=== PATIENT | male | born 1940 | race Caucasian/White ===

== ENCOUNTER 2023-07-18 19:27 | Emergency (ER) | payer OTHER, SELFPAY ==
[2023-07-18 19:40] LABS: Hematocrit 45.1 % (39.0-52.0); Hemoglobin 15.6 g/dL (13.0-18.0); Mean Corp Hgb Conc. 34.6 g/dL (33.0-37.0); Mean Corpuscular Hgb 31.8 pg (27.0-31.0); Mean Platelet Volume 8.4 fL (7.4-10.4); Platelet Count 249 10^3/uL (130-400); Red Cell Dist. Width 13.3 % (11.5-14.5); White Blood Cell Count 11.7 10^3/uL (4.8-10.8)
[2023-07-18 19:42] VITALS: BP 142/74
[2023-07-18 19:56] LABS: ALT (SGPT) 35 U/L (0-50); AST (SGOT) 40 U/L (17-59); Albumin 4.3 g/dl (3.5-5.0); Alkaline Phosphatase 89 U/L (38-126); Blood Urea Nitrogen 30 mg/dl (9-20); Calcium 9.5 mg/dl (8.4-10.2); Carbon Dioxide 26 mmol/L (22-30); Chloride 105 mmol/L (98-107); Glucose 169 mg/dl (70-99); Lipase 58 U/L (23-300); Potassium 4.7 mmol/L (3.5-5.1); Sodium 138 mmol/L (135-145); Total Bilirubin 0.8 mg/dl (0.2-1.3); Total Protein 7.1 g/dl (6.3-8.2); eGFR > 60.00
[2023-07-18] MEDS: ZOFRAN 4 MG IV (19:59)
[2023-07-18] MEDS: NSS 1000 IV (19:59)
--- NOTE | 2023-07-18 20:04 | ED.GENMED ---
History of Present Illness
General
Chief Complaint: Abdominal Symptoms
Source: patient and other (Nursing staff)
Exam Limitations: dementia
Time Seen by Provider: 07/18/23 19:34
Travel History
Have you had any contact with someone who has COVID-19?: Unable to Answer
Do you have any symptoms of coronavirus? Fever > 100 degrees, chills, cough, shortness of breath, sore throat, loss of taste or smell, muscle aches, or headache?: Unable to Answer
History of Present Illness
History of Present Illness:
This is a 83 year old male that is brought in by ambulance. Told that the patient fell about 12:15 today. Patient states that he just felt weak. Told that his wanted patient sent in as patient has vomited twice and had diarrhea once. Patient
denies any fever, chills, chest pain, SOB, abd pain, nausea, headache, dizziness, urinary burning.
Past History
Past History
ED Past Medical History: CAD, Cancer (Melanoma), CVA, HTN, Hypercholesterolemia and Other (Alzheimer's)
ED Past Surgical History: Appendectomy, Cardiac (CABG), Orthopedic and Other (Muscle skin flap to Skull,. cataracts)
Social History
Tobacco: Former smoker
Alcohol: Occasional
Drug: None
Personal:
Living: retirement ([facility])
Family History
Family History: CAD
Review of Systems
Review of Systems
Other source history: other (Nursing and patient)
All Other Systems: ROS reviewed and negative except as documented in HPI and ROS
Constitutional: Reports no symptoms; Denies fever or chills
EENT: Reports no symptoms
Respiratory: Reports no symptoms; Denies cough or trouble breathing
Cardiac: Reports no symptoms; Denies chest pain
ABD/GI: Reports nausea, vomiting (x2) and diarrhea (X1); Denies abdominal pain
: Reports no symptoms; Denies dysuria, frequency or urgency
Musculoskeletal: Reports no symptoms
Skin: Reports no symptoms
Neurological: Reports no symptoms; Denies dizzy or headache
Psychiatric: Reports no symptoms
Phy Exam
General Physical Exam
General Presentation: no apparent distress (Patient is able to answer some questions)
General age: appears stated age
General Skin: warm and dry
General Habitus: elderly
General Mental: usual mental status
General Hydration: dry mucous membranes
ENT Exam
ENT Exam: TM's normal, pharynx normal and neck supple
Eye Exam
Eye Exam: EOMI
Cardiovascular Exam
Cardiovascular Exam: regular rate/rhythm, no edema and normal peripheral pulses
Pulmonary Exam
Pulmonary Exam: lungs clear, no respiratory distress, no rales, chest non tender, no crackles, no rhonchi, no wheezing and no cough
Gastrointestinal Exam
Gastrointestinal Exam: normal bowel sounds, non tender, soft, no organomegaly, no pulsatile mass and non distended
Musculoskeletal Exam
Musculoskeletal Exam: full ROM and no edema
Skin Exam
Skin Exam: normal color, warm/dry, no rash and no petechia
Psychiatric Exam
Psychiatric Exam: normal mood/affect
Course
Orders/Labs/Results
Orders:
Orders
07/18/23 19:32
Complete Blood Count/No Diff Urgent
Comprehensive Metabolic Panel Urgent
Lipase Urgent
07/18/23 19:42
CT Head W/o Iv Contrast Urgent
Comment:
Reason For Exam: Fall
07/18/23 19:43
0.9% Sodium Chloride 1000 ml [Nss] 1,000 ml IV BOLUS
Ondansetron Injectable [Zofran] 4 mg IV NOW STA
07/18/23 19:58
COVID-19 Antigen Urgent
Source: Nasal Swab
Abnormal Lab Results
07/18/23
19:32
WBC 11.7 H 10^3/uL
(4.8-10.8)
MCH 31.8 H pg
(27.0-31.0)
BUN 30 H mg/dl
(9-20)
Glucose 169 H mg/dl
(70-99)
07/18/23 19:32
07/18/23 19:32
WBC very slightly elevated. Dehdyration. Glucose nonfasting. Lipase normal at 58, COVID negative.
Vital Signs
Initial and Last Documented VS:
Initial Vital Signs
Temp Pulse Resp BP Pulse Ox
97.4 F 92 18 142/74 98
07/18/23 19:42 07/18/23 19:42 07/18/23 19:42 07/18/23 19:42 07/18/23 19:42
Last Documented Vital Signs
Temp Pulse Resp BP Pulse Ox
97.4 F 92 18 142/74 98
07/18/23 19:42 07/18/23 19:42 07/18/23 19:42 07/18/23 19:42 07/18/23 19:42
MDM/Problems Addressed
Differential Diagnosis Includes:
Viral Gi syndrome.
MDM/Problems Addressed:
This is a 83 year old male that is brought in by ambulance with c/o vomiting and diarrhea. Patient also fell today as he stated that he was weak.
Will check labs and CT head.
Back into see patient. Patient has been able to take oral fluid here and has no complaints. Will give patient a prescription for Zofran and have him follow up with the family doctor. Patient to return with any concerns.
Chronic conditions affecting care:
NA
Acute Exacerbation and/or Progression of Chronic Illness:
NA
*Radiology
Radiology exam reviewed: radiology read reviewed (CT head-Stable CT appearance of the head. No evidence of acute intracranial abnormality. )
*Pulse Oximetry
Patient hypoxic: no
*EKG
Interpreted by ED Provider?: NA
Rate: EKG- N/A
*Manager Equity Interpretation
Rate: Manager Equity- N/A
*Critical Care Note
Total Time (30-74mins, 75-104mins- exclusive of procedures): Not Applicable
ED Attending Note
-
Portions of this chart may have been created with voice recognition software.� Occasional wrong word or��sound alike� substitutions may have occurred due to the inherent limitations of voice recognition software.
Discharge Plan
Departure
Patient Disposition: Shelter/SNF
Date of Disposition: 07/18/23
Time of Disposition: 21:47
Patient with high blood pressure during this ER visit?: Yes
Condition: Good
Covid-19: Negative COVID-19
Discharge Problem:
Nausea & vomiting, Diarrhea
Instructions: Diarrhea in adolescents and adults, Nausea and Vomiting, Adult (DC), BLOOD PRESSURE
Prescriptions:
New
ondansetron 4 mg tablet,disintegrating
4 mg PO Q8H PRN (Reason: nausea and vomiting) Qty: 7 0RF
No Action
atorvastatin 80 MG tablet
80 mg PO HS
atenolol 25 MG tablet
25 mg PO DAILY
finasteride 5 MG tablet
5 mg PO DAILY
ezetimibe 10 MG tablet
10 mg PO DAILY
aspirin 81 MG tablet,delayed release (DR/EC)
81 mg PO DAILY
memantine 10 mg Tablet
10 mg PO DAILY
cyanocobalamin (vitamin B-12) 1,000 mcg Tablet Extended Release
1,000 mcg PO MOWEFR
acetaminophen [Tylenol] 325 mg Tablet
650 mg PO Q4H PRN (Reason: fever>100F/mild pain)
triamcinolone acetonide 0.1 % Cream
1 applic TOPICAL BID
Rx Instructions:
apply to forehead rash
alprazolam 0.25 mg Tablet
0.25 mg PO BID
alprazolam 0.25 mg Tablet
0.25 mg PO Q6HPRN PRN (Reason: anxiety)
Multivitamin 50 Plus Tablet
1 tab PO DAILY
polyethylene glycol 3350 [Miralax] 17 gram/dose powder
17 g PO HS
risperidone 0.5 mg tablet,disintegrating
0.5 mg PO BID
bupropion HCl 100 mg tablet sustained-release 12 hr
100 mg PO DAILY
docusate sodium [Colace] 100 mg capsule
100 mg PO BID
zinc oxide-aloe vera-vitamin E 11.3 % cream
1 applic TOPICAL BID
Rx Instructions:
apply to left side groin
Referrals:
Thanh Benítez MD [Family Provider] - Follow up in 2-3 days
Activity Restrictions/Additional Instructions:
As discussed, this is most likely a Viral GI syndrome. Please increase patient water intake to 8-8oz glasses daily. Please stay away form milk and milk products as long as the diarrhea continues as this is hard for the gut to digest and will keep
the diarrhea going. Patient has a Prescription for Zofran to help with any nausea. You may also use Imodium if needed for the diarrhea. Please follow up with the family doctor in the next 2-[address] of the head is negative for any
acute process. Patient is negative for COVID. IF YOU HAVE ANY OTHER CONCERNS PLEASE RETURN TO THE EMERGENCY ROOM.
Interventions
Interventions:
*Risk Screen - Suicide Last Done: 07/18/23 19:42
*General Assessment Last Done: 07/18/23 19:42
*Neglect/Abuse Screening Last Done: 07/18/23 19:42
*ED COVID-19 Vaccine History Last Done: 07/18/23 19:42
ND-Hztxza-Zpabolgwev Assessment Last Done: 07/18/23 20:05
[2023-07-18 20:23] LABS: COVID-19 Antigen Negative (Negative)
[2023-07-18 21:59] VITALS: BP 159/75
== END 2023-07-18 22:27 ==
LOC: EMR 19:27
PROVIDERS: Clinical Nurse Specialist Family Health; EMERGENCY PHYSICIAN Student in an Organized Health Care Education/Training Program; FAMILY PHYSICIAN Family Medicine
DX: R11.2 Nausea with vomiting, unspecified (principal); R19.7 Diarrhea, unspecified; R53.1 Weakness; W19.XXXA Unspecified fall, initial encounter; Z11.52 Encounter for screening for COVID-19; I25.10 Atherosclerotic heart disease of native coronary artery without angina pectoris; I10 Essential (primary) hypertension; E78.00 Pure hypercholesterolemia, unspecified; G30.9 Alzheimer's disease, unspecified; F02.80 Dementia in other diseases classified elsewhere, unspecified severity, without behavioral disturbance, psychotic disturbance, mood disturbance, and anxiety; Z79.82 Long term (current) use of aspirin; Z86.73 Personal history of transient ischemic attack (TIA), and cerebral infarction without residual deficits; Z95.1 Presence of aortocoronary bypass graft; Z85.820 Personal history of malignant melanoma of skin; Z87.891 Personal history of nicotine dependence
CPT/HCPCS: 99284; 96374; 96361; 70450; 80053; 83690; 85027; 87811